=== PATIENT | male | born 1990 | race Hispanic/Latino ===

== ENCOUNTER 2017-04-01 20:23 | Inpatient (IN) | payer MEDICAID ==
[2017-04-01 20:24] VITALS: BMI 19.5
--- NOTE | 2017-04-01 23:04 | C.PDOC ---
History Of Present Illness Patient presents to the ER with a complaint of diffuse body aches, fever, nausea , and vomiting. Patient was seen by Dr. Lua who started him on tamiflu, robitussin, and flonase with minimal relief to symptoms. Patient went to work today and began to feel worse which prompted ER visit. Denies recent travel or sick contact. Time Seen by Provider: 04/01/17 23:04 Chief Complaint (Nursing): Abdominal Pain History Per: Patient History/Exam Limitations: no limitations Onset/Duration Of Symptoms: Days Current Symptoms Are (Timing): Still Present Context: Other Severity: Mild Pain Scale Rating Of: 4 Location Of Pain/Discomfort: Other (Diffuse body aches) Quality Of Discomfort: Aching Associated Symptoms: Fever, Nausea, Vomiting Exacerbating Factors: None Alleviating Factors: None Recent travel outside of the [place]: No Additional History Per: Family Past Medical History Reviewed: Historical Data, Nursing Documentation, Vital Signs Vital Signs: Last Vital Signs Temp 98.2 F 04/02/17 05:02 Pulse 75 04/02/17 05:02 Resp 17 04/02/17 05:02 BP 111/69 04/02/17 05:02 Pulse Ox 98 04/02/17 07:11 - Medical History PMH: No Chronic Diseases Surgical History: No Surg Hx Family History: States: No Known Family Hx - Social History Hx Tobacco Use: Yes Hx Alcohol Use: No Hx Substance Use: No - Immunization History Hx Tetanus Toxoid Vaccination: No Hx Influenza Vaccination: No Hx Pneumococcal Vaccination: No Review Of Systems Constitutional: Positive for: Fever Eyes: Negative for: Redness Cardiovascular: Negative for: Chest Pain Respiratory: Negative for: Cough, Shortness of Breath Gastrointestinal: Positive for: Nausea, Vomiting. Negative for: Abdominal Pain , Diarrhea Musculoskeletal: Positive for: Other (Body aches) Skin: Negative for: Rash Neurological: Negative for: Weakness Psych: Negative for: Anxiety Physical Exam - Physical Exam Appears: Non-toxic Skin: Warm, Dry Head: Normacephalic Eye(s): bilateral: Normal Inspection Ear(s): Bilateral: Normal Oral Mucosa: Dry Throat: No Erythema, No Exudate Neck: Supple Chest: Symmetrical Cardiovascular: Rhythm Regular Respiratory: No Rales, No Rhonchi, No Wheezing Gastrointestinal/Abdominal: Soft, No Tenderness Back: No CVA Tenderness Extremity: Normal ROM Extremity: Bilateral: Atraumatic Pulses: Left Dorsalis Pedis: Normal, Right Dorsalis Pedis: Normal Neurological/Psych: Oriented x3, Normal Speech, Normal Cognition Gait: Steady ED Course And Treatment - Laboratory Results Result Diagrams: 04/01/17 23:29 04/01/17 23:29 O2 Sat by Pulse Oximetry: 98 (Room air) Pulse Ox Interpretation: Normal - Radiology CXR: Interpreted by Me, Viewed By Me CXR Interpretation: No: Infiltrates, Fracture, Pnemothorax Progress Note: Blood work, urinalysis, CXR, and flu test ordered. IV fluids and zofran administered. Disposition Discussed With : Sujatha Mar Comment: accepted the pt on his service and took over the care at 5:36 AM Doctor Will See Patient In The: Hospital Counseled Patient/Family Regarding: Studies Performed, Diagnosis - Disposition Disposition: HOSPITALIZED Disposition Time: 23:04 Condition: FAIR - Clinical Impression Clinical Impression: Abdominal pain, Nausea, Vomiting, Pneumonia - Scribe Statement The provider has reviewed the documentation as recorded by the Scribwilli López All medical record entries made by the Heikeibwilli were at my direction and personally dictated by me. I have reviewed the chart and agree that the record accurately reflects my personal performance of the history, physical exam, medical decision making, and the department course for this patient. I have also personally directed, reviewed, and agree with the discharge instructions and disposition. Decision To Admit - Pt Status Changed To: Hospital Disposition Of: Inpatient - Admit Certification Admit to Inpatient:: After my assessment, the patient will require hospitalization for at least two midnights. This is because of the severity of symptoms shown, intensity of services needed, and/or the medical risk in this patient being treated as an outpatient. - InPatient: Physician Admission Certification:: After my assessment, the patient will require hospitalization for at least two midnights. This is because of the severity of symptoms shown, intensity of services needed, and/or the medical risk in this patient being treated as an outpatient. - . Bed Request Type: Regular Admitting Physician: Sujatha Mar Patient Diagnosis: Abdominal pain, Nausea, Vomiting, Pneumonia
[2017-04-01] MEDS ORDERED: Lactated Ringer's 1,000 ML IV ONE (23:12)
[2017-04-01 23:32] LABS: BASO % 0.3 % (0.0-2.0); EOS % 0.1 % (0.0-4.0); LYMPH # 1.2 K/uL (1.0-4.3); MEAN CORPUSCULAR HEMOGLOBIN 29.1 pg (27.0-31.0); MEAN CORPUSCULAR HGB CONC 34.1 g/dL (33.0-37.0); MONO # 1.3 K/uL (0.0-0.8); MONO % 7.8 % (0.0-10.0); WHITE BLOOD COUNT 17.2 K/uL (4.8-10.8)
[2017-04-01 23:40] LABS: INR 1.6
[2017-04-01 23:40] LABS: VENOUS BLOOD GAS BASE EXCESS 1.7 mmol/L (0.0-2.0); VENOUS BLOOD GAS PCO2 42 mmHg (40-60); VENOUS BLOOD PH 7.41 (7.32-7.43)
[2017-04-01 23:54] LABS: MEAN CELL VOLUME 85.2 fL (80.0-94.0); PLATELET COUNT 255 K/uL (130-400)
[2017-04-02] MEDS ORDERED: Piperacillin/Tazobact 3.375 gm 100 ML IVPB STA (00:18)
[2017-04-02 00:20] LABS: ALKALINE PHOSPHATASE 63 U/L (38-126); ALT/SGPT 24 U/L (21-72); AST/SGOT 25 U/L (17-59); BILIRUBIN,TOTAL 0.9 mg/dL (0.2-1.3); BLOOD UREA NITROGEN 10 mg/dL (9-20); CALCIUM 8.9 mg/dl (8.6-10.4); CARBON DIOXIDE 23 mmol/L (22-30); CHLORIDE 91 mmol/L (98-107); GFR AFRICAN-AMERICAN > 60; GLUCOSE,RANDOM 94 mg/dL (75-110); POTASSIUM 3.8 mmol/L (3.6-5.2); SODIUM 130 mmol/L (132-148); TOTAL PROTEIN 8.4 g/dL (6.3-8.3)
[2017-04-02 00:23] LABS: ALB/GLOB RATIO 1.2 (1.0-2.1)
[2017-04-02 00:26] LABS: RBC URINE 17 /hpf (0-3); URINE BACTERIA RARE (<OCC); URINE BILIRUBIN NEGATIVE (NEGATIVE); URINE BLOOD 2+ (NEGATIVE); URINE COLOR Yellow (YELLOW); URINE GLUCOSE (UA) NORMAL (Normal); URINE KETONE 2+ mg/dL (NEGATIVE); URINE LEUKOCYTE ESTERASE NEG Leu/uL (Negative); URINE PROTEIN NEGATIVE (NEGATIVE); WBC URINE 2 /hpf (0-5)
[2017-04-02] MEDS ORDERED: Piperacill/Tazo 3.375gm in Dex 3.375 GM/50 ML BAG IVPB ONE (01:00)
[2017-04-02 02:41] LABS: NEUTROPHIL 84 % (50-75); REACTIVE LYMPHOCYTES 4 % (0-0); TOTAL CELLS COUNTED 100
[2017-04-02] MEDS ORDERED: Sodium Chloride 0.9% 1,000 ML ONE (02:42)
[2017-04-02] MEDS ORDERED: Lactated Ringer's 1,000 ML IV ONE (02:44)
[2017-04-02] MEDS ORDERED: Iohexol 350mg/ml 100 ML ONE (06:02)
--- NOTE | 2017-04-02 06:36 | CT ---
EXAM: CT Abdomen and Pelvis With Intravenous Contrast CLINICAL HISTORY: 26 years old, male; Pain; Abdominal pain; Additional info: Abd pain, n/v. Leukocytosis. Vomiting and fever TECHNIQUE: Axial computed tomography images of the abdomen and pelvis with intravenous contrast. All CT scans at this facility use one or more dose reduction techniques, viz.: automated exposure control; ma/kV adjustment per patient size (including targeted exams where dose is matched to indication; i.e. head); or iterative reconstruction technique. Coronal and sagittal reformatted images were created and reviewed. CONTRAST: 100 mL of administered intravenously. COMPARISON: No relevant prior studies available. FINDINGS: Lower thorax: Scattered mild patchy airspace disease within lung bases, incompletely imaged. ABDOMEN: Liver: Unremarkable. No mass. Gallbladder and bile ducts: No calcified stones. No ductal dilation. Pancreas: No ductal dilation. No mass. Spleen: No splenomegaly. Adrenals: No mass. Kidneys and ureters: No mass. No hydronephrosis. Stomach and bowel: No definite mural thickening. No obstruction. Appendix: Normal caliber. No inflammation. PELVIS: Bladder: Unremarkable. Reproductive: Unremarkable as visualized. ABDOMEN and PELVIS: Intraperitoneal space: No significant fluid collection. No free air. Bones/joints: No acute fracture. Soft tissues: Unremarkable. Vasculature: Unremarkable. No aneurysm. Lymph nodes: No pathologically enlarged lymph nodes. IMPRESSION: 1. Probable multifocal pneumonia. Followup to resolution to exclude underlying pathology.
--- NOTE | 2017-04-02 09:07 | CP.PCM.HP ---
Past Patient History - Past Medical History & Family History Past Medical History?: Yes - Past Social History Smoking Status: Current Some Days Smoker - CARDIAC Hx Cardiac Disorders: Yes Other/Comment: palpatations - NEUROLOGICAL Hx Neurological Disorder: Yes Hx Dizziness: Yes Hx Vertigo: Yes - PSYCHIATRIC Hx Substance Use: No - SURGICAL HISTORY Hx Surgeries: No - ANESTHESIA Hx Anesthesia: No Meds Allergies/Adverse Reactions: Allergies Allergy/AdvReac Type Severity Reaction Status Date / Time No Known Allergies Allergy Verified 04/01/17 20:53 Physical Exam - Constitutional Appears: Well - Head Exam Head Exam: ATRAUMATIC, NORMAL INSPECTION, NORMOCEPHALIC - Eye Exam Eye Exam: EOMI, Normal appearance, PERRL Pupil Exam: NORMAL ACCOMODATION, PERRL - ENT Exam ENT Exam: Mucous Membranes Moist, Normal Exam - Neck Exam Neck exam: Positive for: Normal Inspection - Respiratory Exam Respiratory Exam: Decreased Breath Sounds - Cardiovascular Exam Cardiovascular Exam: REGULAR RHYTHM, +S1, +S2 - GI/Abdominal Exam GI & Abdominal Exam: Diminished Bowel Sounds, Soft - Rectal Exam Rectal Exam: Deferred Results - Vital Signs Recent Vital Signs: Last Vital Signs Temp 98.9 F 04/02/17 07:35 Pulse 88 04/02/17 07:35 Resp 18 04/02/17 07:35 BP 104/69 04/02/17 07:35 Pulse Ox 97 04/02/17 07:35 - Labs Result Diagrams: 04/01/17 23:29 04/01/17 23:29 Labs: Laboratory Results - last 24 hr 04/01/17 04/01/17 04/01/17 23:29 23:29 23:29 WBC 17.2 H D RBC 4.92 Hgb 14.3 Hct 42.0 MCV 85.2 D MCH 29.1 MCHC 34.1 RDW 14.0 Plt Count 255 D MPV 10.0 Neut % (Auto) 84.8 H Lymph % (Auto) 7.0 L [place] % (Auto) 7.8 Eos % (Auto) 0.1 Baso % (Auto) 0.3 Neut # 14.7 H Lymph # 1.2 [place] # 1.3 H Eos # 0.0 Baso # 0.0 Neutrophils % (Manual) 84 H Band Neutrophils % 1 Lymphocytes % (Manual) 5 L Reactive Lymphs % 4 H Monocytes % (Manual) 6 Toxic Granulation Present Platelet Estimate Normal RBC Morphology Normal PT 17.7 H INR 1.6 APTT 53 H pO2 VBG pH VBG pCO2 VBG HCO3 VBG Total CO2 VBG O2 Sat (Calc) VBG Base Excess VBG Potassium Glucose Lactate Sodium 130 L Potassium 3.8 Chloride 91 L Carbon Dioxide 23 Anion Gap 19 BUN 10 Creatinine 0.8 Est GFR ( Amer) > 60 Est GFR (Non-Af Amer) > 60 Random Glucose 94 Calcium 8.9 Total Bilirubin 0.9 AST 25 ALT 24 Alkaline Phosphatase 63 Total Protein 8.4 H Albumin 4.6 Globulin 3.8 Albumin/Globulin Ratio 1.2 Venous Blood Potassium Urine Color Urine Clarity Urine pH Ur Specific [place] Urine Protein Urine Glucose (UA) Urine Ketones Urine Blood Urine Nitrate Urine Bilirubin Urine Urobilinogen Ur Leukocyte Esterase Urine WBC (Auto) Urine RBC (Auto) Urine Bacteria Influenza Typ A,B (EIA) 04/01/17 04/02/17 04/02/17 23:35 01:11 23:45 WBC RBC Hgb Hct MCV MCH MCHC RDW Plt Count MPV Neut % (Auto) Lymph % (Auto) [place] % (Auto) Eos % (Auto) Baso % (Auto) Neut # Lymph # [place] # Eos # Baso # Neutrophils % (Manual) Band Neutrophils % Lymphocytes % (Manual) Reactive Lymphs % Monocytes % (Manual) Toxic Granulation Platelet Estimate RBC Morphology PT INR APTT pO2 18 L VBG pH 7.41 VBG pCO2 42 VBG HCO3 24.3 VBG Total CO2 27.9 VBG O2 Sat (Calc) 32.2 L VBG Base Excess 1.7 VBG Potassium 3.9 Glucose 96 Lactate 1.3 Sodium 134.0 Potassium Chloride 96.0 L Carbon Dioxide Anion Gap BUN Creatinine Est GFR ( Amer) Est GFR (Non-Af Amer) Random Glucose Calcium Total Bilirubin AST ALT Alkaline Phosphatase Total Protein Albumin Globulin Albumin/Globulin Ratio Venous Blood Potassium 3.9 Urine Color Yellow Urine Clarity Clear Urine pH 6.0 Ur Specific [place] 1.016 Urine Protein Negative Urine Glucose (UA) Normal Urine Ketones 2+ H Urine Blood 2+ H Urine Nitrate Negative Urine Bilirubin Negative Urine Urobilinogen 2.0 Ur Leukocyte Esterase Neg Urine WBC (Auto) 2 Urine RBC (Auto) 17 H Urine Bacteria Rare Influenza Typ A,B (EIA) Negative for flu a/b
--- NOTE | 2017-04-02 09:40 | RAD ---
HISTORY: Shortness of breath COMPARISON: 12/13/2015 TECHNIQUE: Chest PA and lateral FINDINGS: LUNGS: Biapical pleural thickening with upper lobe granulomatous changes. Hyperinflation suggestive for COPD and or emphysematous changes. Mild linear atelectatic changes at the right mid to lower lung zone. Left hilar prominence. PLEURA: No significant pleural effusion identified. No pneumothorax apparent. CARDIOVASCULAR: Normal. OSSEOUS STRUCTURES: No significant abnormalities. VISUALIZED UPPER ABDOMEN: Normal. OTHER FINDINGS: None. IMPRESSION: Biapical pleural thickening with upper lobe granulomatous changes. Hyperinflation suggestive for COPD and or emphysematous changes. Mild linear atelectatic changes at the right mid to lower lung zone. Left hilar prominence.
[2017-04-02] MEDS ORDERED: Pantoprazole 40 mg EC Tab PO SCH (10:00)
[2017-04-02] MEDS ORDERED: Enoxaparin 40 mg Syringe SC SCH (10:00)
[2017-04-02] MEDS: Piperacill/Tazo 3.375gm in Dex 3.375 GM/50 ML BAG IVPB SCH ×2 (10:28→17:25)
[2017-04-02] MEDS: Sodium Chloride 0.9% 1,000 ML IV SCH ×2 (12:02→21:20)
[2017-04-02] MEDS ORDERED: guaiFENesin 100 mg/5 ml Syrup UD PO PRN (12:20)
[2017-04-02] MEDS ORDERED: Benzocaine/Menthol (Cepacol) Lozenge MT SCH ×2 (12:30→15:00)
--- NOTE | 2017-04-02 12:38 | CP.PCM.CON ---
<Azra Leonardo - Last Filed: 04/02/17 14:15> History of Present Illness - History of Present Illness History of Present Illness: Azra Leonardo, PGY1, GI Consult Note for Dr Chambers: CC: fever, body aches, cough, nausea, vomiting 26 years old male hx of anxiety, sinusitis, presents for fever, body aches, cough, nausea, vomiting for past 10 days. Pt went to his PCP Dr Lua, where he was diagnosed with flu and treated with Tamiflu. Pt is having mucosy, or yellow, NBNB vomiting episodes 3-4X/day, occurs immediately after eating, feels like a choking sensation as pt has excessive mucus, and also c/o dyspepsia. Pt had some abdominal pain the last week, but currently denies any pain. Pt has good appetite, denies diarrhea, constipation, hematochezia, melena, similar previous episodes. Last BM 4 days ago, attributes to him eating less the past few days. He normally has a daily BM. No recent travel or sick contacts. No prior EGD or colonoscopy. In ED, pt febrile 102.1, received zofran IVx1, 2L LR bolus, Toradol IV x1 and a dose of zosyn IV 12 point ROS obtained and negative, except as noted per HPI PMH: anxiety PSH: denies All: NKA FH: Father, [place] parkinson white syndrome No family history of colon cancer, IBD, GI disorders SH: lives with and kids. Works in [employer]. Former smoker, 10 pack year history, quit 4 months ago. Denies alcohol and illicit drug use. Review of Systems - Review of Systems All systems: reviewed and no additional remarkable complaints except Review of Systems: as per HPI Past Patient History - Past Medical History & Family History Past Medical History?: Yes - Past Social History Smoking Status: Current Some Days Smoker - CARDIAC Hx Cardiac Disorders: Yes Other/Comment: palpatations - NEUROLOGICAL Hx Neurological Disorder: Yes Hx Dizziness: Yes Hx Vertigo: Yes - PSYCHIATRIC Hx Substance Use: No - SURGICAL HISTORY Hx Surgeries: No - ANESTHESIA Hx Anesthesia: No Meds Allergies/Adverse Reactions: Allergies Allergy/AdvReac Type Severity Reaction Status Date / Time No Known Allergies Allergy Verified 04/01/17 20:53 - Medications Medications: Current Medications Acetaminophen (Tylenol 325mg Tab) 650 mg PO Q6 PRN PRN Reason: Fever >100.4 F Enoxaparin Sodium (Lovenox) 40 mg SC DAILY [facility] Piperacillin Sod/Tazobactam Sod (Zosyn 3.375 Gm Iv Premix) 3.375 gm in 50 mls @ 100 mls/hr IVPB Q8H [facility] Last Admin: 04/02/17 10:28 Dose: 100 mls/hr Sodium Chloride (Sodium Chloride 0.9%) 1,000 mls @ 100 mls/hr IV .Q10H [facility] Last Admin: 04/02/17 12:02 Dose: 100 mls/hr Pantoprazole Sodium (Protonix Inj) 40 mg IVP DAILY [facility] Last Admin: 04/02/17 12:00 Dose: 40 mg Physical Exam - Constitutional Appears: Toxic, Unkempt - Head Exam Head Exam: ATRAUMATIC, NORMOCEPHALIC - Eye Exam Eye Exam: EOMI. absent: Scleral icterus Pupil Exam: PERRL - ENT Exam ENT Exam: Mucous Membranes Dry - Respiratory Exam Respiratory Exam: Rales - Cardiovascular Exam Cardiovascular Exam: RRR, +S1, +S2 - GI/Abdominal Exam GI & Abdominal Exam: Hyperactive Bowel Sounds, Soft. absent: Guarding, Mass, Organomegaly, Rebound, Tenderness - Extremities Exam Extremities exam: Negative for: calf tenderness, pedal edema - Neurological Exam Neurological exam: Alert, Oriented x3 - Skin Skin Exam: Diaphoretic, Dry, Warm Results - Vital Signs Recent Vital Signs: Last Vital Signs Temp 98.9 F 04/02/17 07:35 Pulse 88 04/02/17 07:35 Resp 18 04/02/17 07:35 BP 104/69 04/02/17 07:35 Pulse Ox 97 04/02/17 07:35 - Labs Result Diagrams: 04/01/17 23:29 04/01/17 23:29 Labs: Laboratory Results - last 24 hr 04/01/17 04/01/17 04/01/17 23:29 23:29 23:29 WBC 17.2 H D RBC 4.92 Hgb 14.3 Hct 42.0 MCV 85.2 D MCH 29.1 MCHC 34.1 RDW 14.0 Plt Count 255 D MPV 10.0 Neut % (Auto) 84.8 H Lymph % (Auto) 7.0 L [place] % (Auto) 7.8 Eos % (Auto) 0.1 Baso % (Auto) 0.3 Neut # 14.7 H Lymph # 1.2 [place] # 1.3 H Eos # 0.0 Baso # 0.0 Neutrophils % (Manual) 84 H Band Neutrophils % 1 Lymphocytes % (Manual) 5 L Reactive Lymphs % 4 H Monocytes % (Manual) 6 Toxic Granulation Present Platelet Estimate Normal RBC Morphology Normal PT 17.7 H INR 1.6 APTT 53 H pO2 VBG pH VBG pCO2 VBG HCO3 VBG Total CO2 VBG O2 Sat (Calc) VBG Base Excess VBG Potassium Glucose Lactate Sodium 130 L Potassium 3.8 Chloride 91 L Carbon Dioxide 23 Anion Gap 19 BUN 10 Creatinine 0.8 Est GFR ( Amer) > 60 Est GFR (Non-Af Amer) > 60 Random Glucose 94 Calcium 8.9 Total Bilirubin 0.9 AST 25 ALT 24 Alkaline Phosphatase 63 Total Protein 8.4 H Albumin 4.6 Globulin 3.8 Albumin/Globulin Ratio 1.2 Venous Blood Potassium Urine Color Urine Clarity Urine pH Ur Specific [place] Urine Protein Urine Glucose (UA) Urine Ketones Urine Blood Urine Nitrate Urine Bilirubin Urine Urobilinogen Ur Leukocyte Esterase Urine WBC (Auto) Urine RBC (Auto) Urine Bacteria Influenza Typ A,B (EIA) 04/01/17 04/02/17 04/02/17 23:35 01:11 23:45 WBC RBC Hgb Hct MCV MCH MCHC RDW Plt Count MPV Neut % (Auto) Lymph % (Auto) [place] % (Auto) Eos % (Auto) Baso % (Auto) Neut # Lymph # [place] # Eos # Baso # Neutrophils % (Manual) Band Neutrophils % Lymphocytes % (Manual) Reactive Lymphs % Monocytes % (Manual) Toxic Granulation Platelet Estimate RBC Morphology PT INR APTT pO2 18 L VBG pH 7.41 VBG pCO2 42 VBG HCO3 24.3 VBG Total CO2 27.9 VBG O2 Sat (Calc) 32.2 L VBG Base Excess 1.7 VBG Potassium 3.9 Glucose 96 Lactate 1.3 Sodium 134.0 Potassium Chloride 96.0 L Carbon Dioxide Anion Gap BUN Creatinine Est GFR ( Amer) Est GFR (Non-Af Amer) Random Glucose Calcium Total Bilirubin AST ALT Alkaline Phosphatase Total Protein Albumin Globulin Albumin/Globulin Ratio Venous Blood Potassium 3.9 Urine Color Yellow Urine Clarity Clear Urine pH 6.0 Ur Specific [place] 1.016 Urine Protein Negative Urine Glucose (UA) Normal Urine Ketones 2+ H Urine Blood 2+ H Urine Nitrate Negative Urine Bilirubin Negative Urine Urobilinogen 2.0 Ur Leukocyte Esterase Neg Urine WBC (Auto) 2 Urine RBC (Auto) 17 H Urine Bacteria Rare Influenza Typ A,B (EIA) Negative for flu a/b Assessment & Plan - Assessment and Plan (Free Text) Assessment: 26 years old male with hx of anxiety, admitted for flu superimposed with pneumonia, also has nausea and vomiting for past 10 days: Plan: - 2/2 likely cough induced vomiting vs GERD vs gastroenteritis vs gastritis - Ct abd pelvis with IV contrast 04/02: unremarkable for abdominal pathology. Probable multifocal PNA. - T bili 0.9, normal LFTs, ALP 63, INR 1.6, and albumin 4.6 - PPI daily, Cepacol lozenges, Viscous lidocaine, Robitussin, Zofran - Start on clear liquid diet. Advance as tolerated - Continue with pneumonia antibiotics management - If pt's symptoms do not improve, will consider further workup. Discussed with GI fellow and attending, Dr Chambers. Azra Leonardo, PGY1 - Date & Time Date: 04/02/17 Time: 12:38 <Prabhu Chambers - Last Filed: 04/02/17 14:53> Meds - Medications Medications: Current Medications Acetaminophen (Tylenol 325mg Tab) 650 mg PO Q6 PRN PRN Reason: Fever >100.4 F Benzocaine/Menthol (Cepacol Sore Throat) 1 levi MT Q1 [facility] Guaifenesin (Robitussin) 100 mg PO Q4H PRN PRN Reason: Cough Last Admin: 04/02/17 14:05 Dose: 100 mg Piperacillin Sod/Tazobactam Sod (Zosyn 3.375 Gm Iv Premix) 3.375 gm in 50 mls @ 100 mls/hr IVPB Q8H [facility] Last Admin: 04/02/17 10:28 Dose: 100 mls/hr Sodium Chloride (Sodium Chloride 0.9%) 1,000 mls @ 100 mls/hr IV .Q10H [facility] Last Admin: 04/02/17 12:02 Dose: 100 mls/hr Lidocaine HCl (Lidocaine 2% Viscous) 15 ml PO Q6H [facility] Ondansetron HCl (Zofran Inj) 4 mg IVP Q6H PRN PRN Reason: Nausea/Vomiting Last Admin: 04/02/17 10:46 Dose: 4 mg Pantoprazole Sodium (Protonix Inj) 40 mg IVP DAILY [facility] Last Admin: 04/02/17 12:00 Dose: 40 mg Pneumococcal Polyvalent Vaccine (Pneumovax 23 Vaccine) 0.5 ml IM .ONCE ONE Stop: 04/05/17 10:01 Results - Vital Signs Recent Vital Signs: Last Vital Signs Temp 100.6 F H 04/02/17 10:30 Pulse 97 H 04/02/17 10:30 Resp 20 04/02/17 10:30 BP 126/78 04/02/17 10:30 Pulse Ox 96 04/02/17 10:30 - Labs Result Diagrams: 04/01/17 23:29 04/01/17 23:29 Labs: Laboratory Results - last 24 hr 04/01/17 04/01/17 04/01/17 23:29 23:29 23:29 WBC 17.2 H D RBC 4.92 Hgb 14.3 Hct 42.0 MCV 85.2 D MCH 29.1 MCHC 34.1 RDW 14.0 Plt Count 255 D MPV 10.0 Neut % (Auto) 84.8 H Lymph % (Auto) 7.0 L [place] % (Auto) 7.8 Eos % (Auto) 0.1 Baso % (Auto) 0.3 Neut # 14.7 H Lymph # 1.2 [place] # 1.3 H Eos # 0.0 Baso # 0.0 Neutrophils % (Manual) 84 H Band Neutrophils % 1 Lymphocytes % (Manual) 5 L Reactive Lymphs % 4 H Monocytes % (Manual) 6 Toxic Granulation Present Platelet Estimate Normal RBC Morphology Normal PT 17.7 H INR 1.6 APTT 53 H pO2 VBG pH VBG pCO2 VBG HCO3 VBG Total CO2 VBG O2 Sat (Calc) VBG Base Excess VBG Potassium Glucose Lactate Sodium 130 L Potassium 3.8 Chloride 91 L Carbon Dioxide 23 Anion Gap 19 BUN 10 Creatinine 0.8 Est GFR ( Amer) > 60 Est GFR (Non-Af Amer) > 60 Random Glucose 94 Calcium 8.9 Total Bilirubin 0.9 AST 25 ALT 24 Alkaline Phosphatase 63 Total Protein 8.4 H Albumin 4.6 Globulin 3.8 Albumin/Globulin Ratio 1.2 Venous Blood Potassium Urine Color Urine Clarity Urine pH Ur Specific [place] Urine Protein Urine Glucose (UA) Urine Ketones Urine Blood Urine Nitrate Urine Bilirubin Urine Urobilinogen Ur Leukocyte Esterase Urine WBC (Auto) Urine RBC (Auto) Urine Bacteria Influenza Typ A,B (EIA) 04/01/17 04/02/17 04/02/17 23:35 01:11 23:45 WBC RBC Hgb Hct MCV MCH MCHC RDW Plt Count MPV Neut % (Auto) Lymph % (Auto) [place] % (Auto) Eos % (Auto) Baso % (Auto) Neut # Lymph # [place] # Eos # Baso # Neutrophils % (Manual) Band Neutrophils % Lymphocytes % (Manual) Reactive Lymphs % Monocytes % (Manual) Toxic Granulation Platelet Estimate RBC Morphology PT INR APTT pO2 18 L VBG pH 7.41 VBG pCO2 42 VBG HCO3 24.3 VBG Total CO2 27.9 VBG O2 Sat (Calc) 32.2 L VBG Base Excess 1.7 VBG Potassium 3.9 Glucose 96 Lactate 1.3 Sodium 134.0 Potassium Chloride 96.0 L Carbon Dioxide Anion Gap BUN Creatinine Est GFR ( Amer) Est GFR (Non-Af Amer) Random Glucose Calcium Total Bilirubin AST ALT Alkaline Phosphatase Total Protein Albumin Globulin Albumin/Globulin Ratio Venous Blood Potassium 3.9 Urine Color Yellow Urine Clarity Clear Urine pH 6.0 Ur Specific [place] 1.016 Urine Protein Negative Urine Glucose (UA) Normal Urine Ketones 2+ H Urine Blood 2+ H Urine Nitrate Negative Urine Bilirubin Negative Urine Urobilinogen 2.0 Ur Leukocyte Esterase Neg Urine WBC (Auto) 2 Urine RBC (Auto) 17 H Urine Bacteria Rare Influenza Typ A,B (EIA) Negative for flu a/b Attending/Attestation - Attestation I have personally seen and examined this patient.: Yes I have fully participated in the care of the patient.: Yes I have reviewed all pertinent clinical information: Yes Notes (Text): 04/02/17 14:47 I have seen and examined patient with GI fellow and emergency medical dispatcher. Agree with above documentation with the following additions. In brief, this is a 26 year old male with history of anxiety who presents to hospital with complaint of progressive fever, cough, chills, and body aches for the past 10 days. He is currently being treated for pneumonia, GI called for evaluation of vomiting. He describes having a severe sore throat during this time period and as a result has experienced recurrent oropharyngeal dysphagia following food consumption and has small volume vomitus/regurgitation up to three times daily. He denies abdominal pain, diarrhea, weight loss, or change in bowel habits. He denies recent travel, sick contacts, or prior endoscopic evaluation. Anxiety Fever, cough Sepsis - Pneumonia Oropharyngeal dysphagia, vomiting, likely related to acute pulmonary symptoms - Liquid diet as tolerated - Continue with antibiotic therapy as per medical team. Obtain blood cultures, consider HIV testing. - Continue with PPI therapy - Suggest cepacol throat lozenge along with PO viscous lidocaine for relief of throat discomfort - Anti-emetic therapy PRN - Will continue to monitor patient clinical course
[2017-04-02] MEDS ORDERED: Benzocaine/Menthol (Cepacol) Lozenge MT PRN (16:15)
--- NOTE | 2017-04-02 18:16 | CP.PCM.CON ---
History of Present Illness - History of Present Illness History of Present Illness: Reason for consultation: Pneumonia 26 y/o male with no sig PMHx presents with one week hx of fever and cough. CT scan showed probable multifocal pneumonia in lower lung lobes. Pt was started on Zosyn 04/02. Patient was seen and examined at bedside. Patient resting comfortably. Patient is complaining of non-productive cough, chills and fatigue. Denies chest pain or shortness of breath. Denies recent travel or hospitalizations His son was sick recently . Patient has an 11 pack year smoking history but says he quit five months ago. Medications: denies PMHx: Anxiety PSurg: denies SocialHx: 11 pack year smoking history, denies illicit drug or alcohol use Review of Systems - Review of Systems All systems: reviewed and no additional remarkable complaints except (Shortness of breath and cough) Past Patient History - Past Medical History & Family History Past Medical History?: Yes - Past Social History Smoking Status: Current Some Days Smoker - CARDIAC Hx Cardiac Disorders: Yes Other/Comment: palpatations - NEUROLOGICAL Hx Neurological Disorder: Yes Hx Dizziness: Yes Hx Vertigo: Yes - PSYCHIATRIC Hx Substance Use: No - SURGICAL HISTORY Hx Surgeries: No - ANESTHESIA Hx Anesthesia: No Meds Allergies/Adverse Reactions: Allergies Allergy/AdvReac Type Severity Reaction Status Date / Time No Known Allergies Allergy Verified 04/01/17 20:53 - Medications Medications: Current Medications Acetaminophen (Tylenol 325mg Tab) 650 mg PO Q6 PRN PRN Reason: Fever >100.4 F Benzocaine/Menthol (Cepacol Sore Throat) 1 levi MT Q1 PRN PRN Reason: SORE THROAT Guaifenesin (Robitussin) 100 mg PO Q4H PRN PRN Reason: Cough Last Admin: 04/02/17 14:05 Dose: 100 mg Piperacillin Sod/Tazobactam Sod (Zosyn 3.375 Gm Iv Premix) 3.375 gm in 50 mls @ 100 mls/hr IVPB Q8H [facility] Last Admin: 04/02/17 17:25 Dose: 100 mls/hr Sodium Chloride (Sodium Chloride 0.9%) 1,000 mls @ 100 mls/hr IV .Q10H [facility] Last Admin: 04/02/17 12:02 Dose: 100 mls/hr Lidocaine HCl (Lidocaine 2% Viscous) 15 ml PO Q6H [facility] Last Admin: 04/02/17 15:28 Dose: Not Given Ondansetron HCl (Zofran Inj) 4 mg IVP Q6H PRN PRN Reason: Nausea/Vomiting Last Admin: 04/02/17 10:46 Dose: 4 mg Pantoprazole Sodium (Protonix Inj) 40 mg IVP DAILY [facility] Last Admin: 04/02/17 12:00 Dose: 40 mg Pneumococcal Polyvalent Vaccine (Pneumovax 23 Vaccine) 0.5 ml IM .ONCE ONE Stop: 04/05/17 10:01 Physical Exam - Head Exam Head Exam: ATRAUMATIC, NORMOCEPHALIC - ENT Exam ENT Exam: Mucous Membranes Moist - Respiratory Exam Respiratory Exam: Clear to Auscultation Bilateral - Cardiovascular Exam Cardiovascular Exam: REGULAR RHYTHM - GI/Abdominal Exam GI & Abdominal Exam: Normal Bowel Sounds, Soft - Extremities Exam Extremities exam: Positive for: normal inspection - Neurological Exam Neurological exam: Alert, Oriented x3 Results - Vital Signs Recent Vital Signs: Last Vital Signs Temp 97.4 F L 04/02/17 16:01 Pulse 62 04/02/17 16:01 Resp 20 04/02/17 16:01 BP 102/65 04/02/17 16:01 Pulse Ox 98 04/02/17 16:01 - Labs Result Diagrams: 04/01/17 23:29 04/01/17 23:29 Labs: Laboratory Results - last 24 hr 04/01/17 04/01/17 04/01/17 23:29 23:29 23:29 WBC 17.2 H D RBC 4.92 Hgb 14.3 Hct 42.0 MCV 85.2 D MCH 29.1 MCHC 34.1 RDW 14.0 Plt Count 255 D MPV 10.0 Neut % (Auto) 84.8 H Lymph % (Auto) 7.0 L [place] % (Auto) 7.8 Eos % (Auto) 0.1 Baso % (Auto) 0.3 Neut # 14.7 H Lymph # 1.2 [place] # 1.3 H Eos # 0.0 Baso # 0.0 Neutrophils % (Manual) 84 H Band Neutrophils % 1 Lymphocytes % (Manual) 5 L Reactive Lymphs % 4 H Monocytes % (Manual) 6 Toxic Granulation Present Platelet Estimate Normal RBC Morphology Normal PT 17.7 H INR 1.6 APTT 53 H pO2 VBG pH VBG pCO2 VBG HCO3 VBG Total CO2 VBG O2 Sat (Calc) VBG Base Excess VBG Potassium Glucose Lactate Sodium 130 L Potassium 3.8 Chloride 91 L Carbon Dioxide 23 Anion Gap 19 BUN 10 Creatinine 0.8 Est GFR ( Amer) > 60 Est GFR (Non-Af Amer) > 60 Random Glucose 94 Calcium 8.9 Total Bilirubin 0.9 AST 25 ALT 24 Alkaline Phosphatase 63 Total Protein 8.4 H Albumin 4.6 Globulin 3.8 Albumin/Globulin Ratio 1.2 Venous Blood Potassium Urine Color Urine Clarity Urine pH Ur Specific [place] Urine Protein Urine Glucose (UA) Urine Ketones Urine Blood Urine Nitrate Urine Bilirubin Urine Urobilinogen Ur Leukocyte Esterase Urine WBC (Auto) Urine RBC (Auto) Urine Bacteria Influenza Typ A,B (EIA) 04/01/17 04/02/17 04/02/17 23:35 01:11 23:45 WBC RBC Hgb Hct MCV MCH MCHC RDW Plt Count MPV Neut % (Auto) Lymph % (Auto) [place] % (Auto) Eos % (Auto) Baso % (Auto) Neut # Lymph # [place] # Eos # Baso # Neutrophils % (Manual) Band Neutrophils % Lymphocytes % (Manual) Reactive Lymphs % Monocytes % (Manual) Toxic Granulation Platelet Estimate RBC Morphology PT INR APTT pO2 18 L VBG pH 7.41 VBG pCO2 42 VBG HCO3 24.3 VBG Total CO2 27.9 VBG O2 Sat (Calc) 32.2 L VBG Base Excess 1.7 VBG Potassium 3.9 Glucose 96 Lactate 1.3 Sodium 134.0 Potassium Chloride 96.0 L Carbon Dioxide Anion Gap BUN Creatinine Est GFR ( Amer) Est GFR (Non-Af Amer) Random Glucose Calcium Total Bilirubin AST ALT Alkaline Phosphatase Total Protein Albumin Globulin Albumin/Globulin Ratio Venous Blood Potassium 3.9 Urine Color Yellow Urine Clarity Clear Urine pH 6.0 Ur Specific [place] 1.016 Urine Protein Negative Urine Glucose (UA) Normal Urine Ketones 2+ H Urine Blood 2+ H Urine Nitrate Negative Urine Bilirubin Negative Urine Urobilinogen 2.0 Ur Leukocyte Esterase Neg Urine WBC (Auto) 2 Urine RBC (Auto) 17 H Urine Bacteria Rare Influenza Typ A,B (EIA) Negative for flu a/b Assessment & Plan (1) Pneumonia Status: Acute Comment: 26 y/o male with no sig PMHx presents with fevers and cough. Pneumonia. Plan: continue antibiotics. repeat Chest X-ray
[2017-04-03] MEDS: Sodium Chloride 0.9% 1,000 ML IV SCH ×2 (00:12→17:43)
[2017-04-03] MEDS: Piperacill/Tazo 3.375gm in Dex 3.375 GM/50 ML BAG IVPB SCH ×3 (00:12→15:59)
[2017-04-03 11:22] LABS: BASO % 0.4 % (0.0-2.0); EOS # 0.2 K/uL (0.0-0.7); EOS % 1.5 % (0.0-4.0); HEMATOCRIT 35.4 % (35.0-51.0); LYMPH % 18.4 % (20.0-40.0); MEAN CELL VOLUME 85.2 fL (80.0-94.0); MEAN CORPUSCULAR HEMOGLOBIN 28.9 pg (27.0-31.0); MEAN CORPUSCULAR HGB CONC 33.9 g/dL (33.0-37.0); MEAN PLATELET VOLUME 9.7 fL (7.2-11.7); MONO # 1.4 K/uL (0.0-0.8); MONO % 12.9 % (0.0-10.0); RED CELL DISTRIBUTION WIDTH 13.9 % (11.5-14.5); WHITE BLOOD COUNT 10.9 K/uL (4.8-10.8)
[2017-04-03 11:26] LABS: INR 1.5
[2017-04-03 11:54] LABS: ALKALINE PHOSPHATASE 42 U/L (38-126); ALT/SGPT 29 U/L (21-72); AST/SGOT 13 U/L (17-59); BILIRUBIN,TOTAL 0.6 mg/dL (0.2-1.3); BLOOD UREA NITROGEN 9 mg/dL (9-20); CALCIUM 7.8 mg/dl (8.6-10.4); CARBON DIOXIDE 23 mmol/L (22-30); CHLORIDE 98 mmol/L (98-107); GFR AFRICAN-AMERICAN > 60; GLUCOSE,RANDOM 78 mg/dL (75-110); POTASSIUM 3.7 mmol/L (3.6-5.2); SODIUM 135 mmol/L (132-148); TOTAL PROTEIN 7.1 g/dL (6.3-8.3)
[2017-04-03] MEDS ORDERED: Propofol 10 mg/ml Inj (20 ML) ONE (12:43)
[2017-04-03] MEDS ORDERED: Midazolam 2 MG/2 ML VIAL ONE (12:43)
[2017-04-03] MEDS ORDERED: Lactated Ringer's 500 ML IV SCH (12:45)
--- NOTE | 2017-04-03 13:02 | CP.PCM.PN ---
Subjective - Date & Time of Evaluation Date of Evaluation: 04/03/17 Time of Evaluation: 12:58 - Subjective Subjective: Patient seen and examined, resting comfortably. He complains of ongoing throat discomfort with two episodes of non-bloody vomiting overnight. He is tolerating PO liquids without difficulty. s/p EGD today showing erosive gastritis, duodenitis. Objective - Vital Signs/Intake and Output Vital Signs (last 24 hours): Temp Pulse Resp BP Pulse Ox 98.5 F 91 H 20 120/76 94 L 04/03/17 12:38 04/03/17 12:38 04/03/17 12:38 04/03/17 12:38 04/03/17 12:38 Intake and Output: 04/03/17 04/03/17 06:59 18:59 Intake Total 0 Balance 0 - Medications Medications: Current Medications Acetaminophen (Tylenol 325mg Tab) 650 mg PO Q6 PRN PRN Reason: Fever >100.4 F Benzocaine/Menthol (Cepacol Sore Throat) 1 levi MT Q1 PRN PRN Reason: SORE THROAT Guaifenesin (Robitussin) 100 mg PO Q4H PRN PRN Reason: Cough Last Admin: 04/02/17 14:05 Dose: 100 mg Piperacillin Sod/Tazobactam Sod (Zosyn 3.375 Gm Iv Premix) 3.375 gm in 50 mls @ 100 mls/hr IVPB Q8H [facility] Last Admin: 04/03/17 07:59 Dose: 100 mls/hr Sodium Chloride (Sodium Chloride 0.9%) 1,000 mls @ 100 mls/hr IV .Q10H [facility] Last Admin: 04/03/17 00:12 Dose: 100 mls/hr Lactated Ringer's (Lactated Ringer's 500ml) 500 mls @ 75 mls/hr IV .Q6H40M [facility] Lidocaine HCl (Lidocaine 2% Viscous) 15 ml PO Q6H [facility] Last Admin: 04/03/17 08:01 Dose: Not Given Ondansetron HCl (Zofran Inj) 4 mg IVP Q6H PRN PRN Reason: Nausea/Vomiting Last Admin: 04/02/17 22:35 Dose: 4 mg Pantoprazole Sodium (Protonix Inj) 40 mg IVP DAILY [facility] Last Admin: 04/03/17 09:34 Dose: 40 mg Pneumococcal Polyvalent Vaccine (Pneumovax 23 Vaccine) 0.5 ml IM .ONCE ONE Stop: 04/05/17 10:01 - Labs Labs: 04/03/17 11:14 04/03/17 11:14 PT 17.6 SECONDS (9.7-12.2) H 04/03/17 11:14 INR 1.5 04/03/17 11:14 APTT 53 SECONDS (21-34) H 04/01/17 23:29 Assessment and Plan - Assessment and Plan (Free Text) Assessment: Fever, cough - multifocal pneumonia Nausea, vomiting - likely multifactorial related to acute infectious process Abdominal pain - s/p EGD showing erosive gastritis, duodenitis Plan: - Full liquid diet, advance slowly as tolerated - Continue with PPI therapy - Await biopsy results from EGD - Anti-emetic therapy PRN - Continue with antibiotic therapy as per medical team - No further planned GI intervention, will sign off case. Please reconsult as necessary.
--- NOTE | 2017-04-03 19:13 | CP.PCM.PN ---
Subjective - Date & Time of Evaluation Date of Evaluation: 04/03/17 Time of Evaluation: 09:20 - Subjective Subjective: clinically same Objective - Vital Signs/Intake and Output Vital Signs (last 24 hours): Temp Pulse Resp BP Pulse Ox 98.2 F 69 20 116/73 96 04/03/17 16:23 04/03/17 16:23 04/03/17 16:23 04/03/17 16:23 04/03/17 16:23 Intake and Output: 04/03/17 04/04/17 18:59 06:59 Intake Total 700 Balance 700 - Medications Medications: Current Medications Acetaminophen (Tylenol 325mg Tab) 650 mg PO Q6 PRN PRN Reason: Fever >100.4 F Benzocaine/Menthol (Cepacol Sore Throat) 1 levi MT Q1 PRN PRN Reason: SORE THROAT Guaifenesin (Robitussin) 100 mg PO Q4H PRN PRN Reason: Cough Last Admin: 04/02/17 14:05 Dose: 100 mg Piperacillin Sod/Tazobactam Sod (Zosyn 3.375 Gm Iv Premix) 3.375 gm in 50 mls @ 100 mls/hr IVPB Q8H [facility] Last Admin: 04/03/17 15:59 Dose: 100 mls/hr Sodium Chloride (Sodium Chloride 0.9%) 1,000 mls @ 100 mls/hr IV .Q10H [facility] Last Admin: 04/03/17 17:43 Dose: 100 mls/hr Lidocaine HCl (Lidocaine 2% Viscous) 15 ml PO Q6H [facility] Last Admin: 04/03/17 13:50 Dose: Not Given Ondansetron HCl (Zofran Inj) 4 mg IVP Q6H PRN PRN Reason: Nausea/Vomiting Last Admin: 04/03/17 14:39 Dose: 4 mg Pantoprazole Sodium (Protonix Inj) 40 mg IVP DAILY [facility] Last Admin: 04/03/17 09:34 Dose: 40 mg Pneumococcal Polyvalent Vaccine (Pneumovax 23 Vaccine) 0.5 ml IM .ONCE ONE Stop: 04/05/17 10:01 - Labs Labs: 04/03/17 11:14 04/03/17 11:14 PT 17.6 SECONDS (9.7-12.2) H 04/03/17 11:14 INR 1.5 04/03/17 11:14 APTT 53 SECONDS (21-34) H 04/01/17 23:29
[2017-04-04] MEDS: Piperacill/Tazo 3.375gm in Dex 3.375 GM/50 ML BAG IVPB SCH ×3 (00:12→16:11)
[2017-04-04] MEDS: Sodium Chloride 0.9% 1,000 ML IV SCH ×3 (03:26→18:55)
--- NOTE | 2017-04-04 16:56 | CP.PCM.PN ---
Subjective - Date & Time of Evaluation Date of Evaluation: 04/04/17 Objective - Vital Signs/Intake and Output Vital Signs (last 24 hours): Temp Pulse Resp BP Pulse Ox 97.9 F 58 L 18 107/66 96 04/04/17 15:19 04/04/17 15:19 04/04/17 15:19 04/04/17 15:19 04/04/17 15:19 Intake and Output: 04/04/17 04/04/17 06:59 18:59 Intake Total 800 1250 Balance 800 1250 - Medications Medications: Current Medications Acetaminophen (Tylenol 325mg Tab) 650 mg PO Q6 PRN PRN Reason: Fever >100.4 F Benzocaine/Menthol (Cepacol Sore Throat) 1 levi MT Q1 PRN PRN Reason: SORE THROAT Guaifenesin (Robitussin) 100 mg PO Q4H PRN PRN Reason: Cough Last Admin: 04/02/17 14:05 Dose: 100 mg Piperacillin Sod/Tazobactam Sod (Zosyn 3.375 Gm Iv Premix) 3.375 gm in 50 mls @ 100 mls/hr IVPB Q8H [facility] Last Admin: 04/04/17 16:11 Dose: 100 mls/hr Sodium Chloride (Sodium Chloride 0.9%) 1,000 mls @ 100 mls/hr IV .Q10H [facility] Last Admin: 04/04/17 14:15 Dose: Not Given Lidocaine HCl (Lidocaine 2% Viscous) 15 ml PO Q6H [facility] Last Admin: 04/04/17 14:15 Dose: Not Given Ondansetron HCl (Zofran Inj) 4 mg IVP Q6H PRN PRN Reason: Nausea/Vomiting Last Admin: 04/03/17 14:39 Dose: 4 mg Pantoprazole Sodium (Protonix Inj) 40 mg IVP DAILY [facility] Last Admin: 04/04/17 09:01 Dose: 40 mg Pneumococcal Polyvalent Vaccine (Pneumovax 23 Vaccine) 0.5 ml IM .ONCE ONE Stop: 04/05/17 10:01 - Labs Labs: 04/03/17 11:14 04/03/17 11:14 PT 17.6 SECONDS (9.7-12.2) H 04/03/17 11:14 INR 1.5 04/03/17 11:14 APTT 53 SECONDS (21-34) H 04/01/17 23:29
[2017-04-04] MEDS ORDERED: Aluminum Hydroxide/Magnesium Hydroxide Susp (30 mL) PO PRN (18:43)
[2017-04-05] MEDS: Piperacill/Tazo 3.375gm in Dex 3.375 GM/50 ML BAG IVPB SCH ×2 (00:05→09:07)
[2017-04-05 08:23] VITALS: BP 119/76; PULSE 60; RESP 18; TEMP 98.2; O2SAT 97
[2017-04-05] MEDS ORDERED: Pneumococcal 23-Valent Vaccine IM ONE (10:00)
[2017-04-05] MEDS ORDERED: Influenza Vaccine 60 mcg/0.5 mL SYR (4YR UP) IM ONE (10:00)
[2017-04-05] MEDS: Sodium Chloride 0.9% 1,000 ML IV SCH (12:03)
--- NOTE | 2017-04-05 12:14 | CP.PCM.PN ---
Subjective - Date & Time of Evaluation Date of Evaluation: 04/05/17 Time of Evaluation: 12:14 - Subjective Subjective: All management as per Dr. Jayce Mar This patient was seen and examined at bedside without attending physician; he denies any fevers/chills, CP, SOB, abdominal pain, cough, N/V/D, dysuria/freq/ urg, or lower extremity pain swelling. THe patient is stable for d/c and he is agreeable to this. Objective - Vital Signs/Intake and Output Vital Signs (last 24 hours): Temp Pulse Resp BP Pulse Ox 98.2 F 60 18 119/76 97 04/05/17 07:05 04/05/17 07:05 04/05/17 07:05 04/05/17 07:05 04/05/17 07:05 - Medications Medications: Current Medications Acetaminophen (Tylenol 325mg Tab) 650 mg PO Q6 PRN PRN Reason: Fever >100.4 F Al Hydrox/Mg Hydrox/Simethicone (Maalox 30 Ml) 30 ml PO Q6 PRN PRN Reason: Indigestion / Heartburn Last Admin: 04/04/17 18:53 Dose: 30 ml Benzocaine/Menthol (Cepacol Sore Throat) 1 levi MT Q1 PRN PRN Reason: SORE THROAT Guaifenesin (Robitussin) 100 mg PO Q4H PRN PRN Reason: Cough Last Admin: 04/02/17 14:05 Dose: 100 mg Piperacillin Sod/Tazobactam Sod (Zosyn 3.375 Gm Iv Premix) 3.375 gm in 50 mls @ 100 mls/hr IVPB Q8H [facility] Last Admin: 04/05/17 09:07 Dose: 100 mls/hr Sodium Chloride (Sodium Chloride 0.9%) 1,000 mls @ 100 mls/hr IV .Q10H [facility] Last Admin: 04/05/17 12:03 Dose: Not Given Lidocaine HCl (Lidocaine 2% Viscous) 15 ml PO Q6H [facility] Last Admin: 04/05/17 09:07 Dose: 15 ml Ondansetron HCl (Zofran Inj) 4 mg IVP Q6H PRN PRN Reason: Nausea/Vomiting Last Admin: 04/04/17 18:28 Dose: 4 mg Pantoprazole Sodium (Protonix Inj) 40 mg IVP DAILY [facility] Last Admin: 04/05/17 09:07 Dose: 40 mg - Labs Labs: 04/03/17 11:14 04/03/17 11:14 PT 17.6 SECONDS (9.7-12.2) H 04/03/17 11:14 INR 1.5 04/03/17 11:14 APTT 53 SECONDS (21-34) H 04/01/17 23:29 - Constitutional Appears: Non-toxic - Head Exam Head Exam: ATRAUMATIC - Eye Exam Eye Exam: EOMI - ENT Exam ENT Exam: Mucous Membranes Moist - Neck Exam Neck Exam: Full ROM. absent: Lymphadenopathy - Respiratory Exam Respiratory Exam: Clear to Ausculation Bilateral, NORMAL BREATHING PATTERN. absent: Rales, Rhonchi, Wheezes - Cardiovascular Exam Cardiovascular Exam: REGULAR RHYTHM - GI/Abdominal Exam GI & Abdominal Exam: Soft, Normal Bowel Sounds - Extremities Exam Extremities Exam: Full ROM. absent: Calf Tenderness - Back Exam Back Exam: NORMAL INSPECTION. absent: CVA tenderness (L), CVA tenderness (R) - Neurological Exam Neurological Exam: Alert, Awake, CN II-XII Intact, Normal Gait, Oriented x3 - Psychiatric Exam Psychiatric exam: Normal Affect - Skin Skin Exam: Warm Assessment and Plan - Assessment and Plan (Free Text) Assessment: 26yo M admitted for PNA and Erosive Gastritis The patient is to be discharged. He will need to take a Z-Pack and Inhaler as needed, and should follow up with his PMD for an X-Ray in 6 weeks to see how his pneumonia is resolving. The patient was seen walking around his room, and is not on oxygen The patient also has gastritis; he will be discharged on protonix and carafate for symptomatic relief; he also needs to follow up with his PMD for the management of this for appropriate referral to GI in the future. GI here did not suggest any more acute interventions. The patient is stable for discharge All management as per Dr. Jayce Mar
== END 2017-04-05 12:45 | disposition home or self-care (01) | DRG 90 ==
LOC: C.ER 20:23 → C.9E 04-02 05:35 → C.5S 04-02 08:48
PROVIDERS: ADMIT Internal Medicine Nephrology; ATTEND Internal Medicine Nephrology
PROC: 0DB68ZX Excision of Stomach, Via Natural or Artificial Opening Endoscopic, Diagnostic (ICD-10-PCS; 2017-04-03)
PROC: 0DB98ZX Excision of Duodenum, Via Natural or Artificial Opening Endoscopic, Diagnostic (ICD-10-PCS; principal; 2017-04-03 12:40)
DX: J18.9 Pneumonia, unspecified organism (principal); R13.12 Dysphagia, oropharyngeal phase; F41.9 Anxiety disorder, unspecified; F17.210 Nicotine dependence, cigarettes, uncomplicated; K29.60 Other gastritis without bleeding; K29.80 Duodenitis without bleeding; Z82.49 Family history of ischemic heart disease and other diseases of the circulatory system; B96.81 Helicobacter pylori [H. pylori] as the cause of diseases classified elsewhere; Z28.21 Immunization not carried out because of patient refusal

== ENCOUNTER 2018-09-29 21:36 | Emergency (ER) | payer MEDICAID ==
[2018-09-29 21:37] VITALS: BMI 19.5
[2018-09-29 22:17] VITALS: RESP 16
--- NOTE | 2018-09-29 22:47 | C.PDOC ---
History Of Present Illness 28 year old male presents stating his right foot has been hurting for the past 4 days. Patient denies any recent injury but he reports 2 weeks ago he jumped down a latter, believes he might have had pain at that time. He is currently complaining of pain and swelling to the dorsal lateral aspect of his right foot. Denies weakness or numbness of the right foot. Time Seen by Provider: 09/29/18 22:09 Chief Complaint (Nursing): Lower Extremity Problem/Injury History Per: Patient History/Exam Limitations: no limitations Onset/Duration Of Symptoms: Days (4) Current Symptoms Are (Timing): Still Present Recent travel outside of the [place]: No Past Medical History Reviewed: Historical Data, Nursing Documentation, Vital Signs Vital Signs: Last Vital Signs Temp 99 F 09/29/18 22:10 Pulse 83 09/29/18 22:10 Resp 16 09/29/18 22:10 BP 123/75 09/29/18 22:10 Pulse Ox 99 09/29/18 22:10 Primary Care Provider: FAMILY PROVIDER,NO - Medical History PMH: - [facility] EXCISION OF DUODENUM, ENDO, DIAGN (04/02/17) EXCISION OF STOMACH, ENDO, DIAGN (04/02/17) Family History: States: Unknown Family Hx - Social History Hx Tobacco Use: Yes Hx Alcohol Use: No Hx Substance Use: No - Immunization History Hx Tetanus Toxoid Vaccination: No Hx Influenza Vaccination: Yes Hx Pneumococcal Vaccination: No Review Of Systems Musculoskeletal: Positive for: Foot Pain (Right) Skin: Negative for: Bruising Neurological: Negative for: Weakness, Numbness Physical Exam - Physical Exam Appears: Well, Non-toxic, No Acute Distress Skin: Normal Color, Warm Head: Atraumatic, Normacephalic Eye(s): bilateral: Normal Inspection Extremity: Capillary Refill (<2 seconds), Other (Mild swelling to right foot with tenderness to dorsal lateral aspect) Pulses: Left Dorsalis Pedis: Normal, Right Dorsalis Pedis: Normal Neurological/Psych: Oriented x3, Normal Speech, Normal Motor, Normal Sensation ED Course And Treatment O2 Sat by Pulse Oximetry: 99 - Other Rad Right foot x-ray X-Ray: Interpreted by Me, Viewed By Me Interpretation: Fracture of the 4th metatarsal. Medical Decision Making Medical Decision Making: xr revealed a nondisplaced 4th metatarsal fx posterior splint, hard shoe and crutches given to patient. Disposition Counseled Patient/Family Regarding: Studies Performed, Diagnosis, Need For Followup, Rx Given - Disposition Referrals: Podiatry Clinic [Outside] Disposition: HOME/ ROUTINE Disposition Time: 22:45 Condition: STABLE Prescriptions: Ibuprofen [Motrin Tab] 800 mg PO TID PRN #21 tab PRN Reason: Pain, Moderate (4-7) Instructions: Foot Fracture (DC) Forms: General Discharge Instructions, [facility] (Danish), Work Excuse - Clinical Impression Clinical Impression: Metatarsal bone fracture - Scribe Statement The provider has reviewed the documentation as recorded by the Scribe Jonatan López All medical record entries made by the Heikeibe were at my direction and personally dictated by me. I have reviewed the chart and agree that the record accurately reflects my personal performance of the history, physical exam, medical decision making, and the department course for this patient. I have also personally directed, reviewed, and agree with the discharge instructions and disposition.
[2018-09-29 23:30] VITALS: BP 109/73; PULSE 72; TEMP 98.2
[2018-09-29 23:51] VITALS: O2SAT 99
--- NOTE | 2018-09-30 08:39 | RAD ---
Date of service: 09/29/2018 PROCEDURE: Right Foot Radiographs. HISTORY: pain COMPARISON: None. TECHNIQUE: 3 views obtained. FINDINGS: BONES: Normal. No fracture. JOINTS: Hammertoe orientations noted Minimal 1st metatarsal-phalangeal joint arthrosis SOFT TISSUES: Normal. OTHER FINDINGS: None. IMPRESSION: No fracture or lytic lesion. Minimal 1st metatarsal-phalangeal joint arthrosis
== END 2018-09-29 23:30 | disposition home or self-care (01) ==
LOC: C.ER 21:36
DX: S92.344A Nondisplaced fracture of fourth metatarsal bone, right foot, initial encounter for closed fracture (principal); X58.XXXA Exposure to other specified factors, initial encounter